=== PATIENT | male | born 1995 | race Hispanic/Latino ===

== ENCOUNTER 2025-06-10 22:39 | Emergency (ER) | payer SELFPAY ==
[~2025-06-10] VITALS: Ht 182.9 cm; Wt 81.6 kg
[2025-06-10 22:43] VITALS: BP 113/75; PULSE 91; RESP 16; TEMP 98.1
--- NOTE | 2025-06-10 22:49 | ERN ---
ED Note History of Present Illness Stated Complaint: MEDICAL CLEARANCE Chief Complaint: Medical Clearance Time Seen by MD: 22:42 Dictation: PATIENT IS A 30-YEAR-OLD MALE COMING IN VIA EMS FROM [facility]. HE WENT TO [place] BECAUSE HE NEEDED TO TALK TO SOMEBODY ABOUT HOW HE WAS FEELING AND HE GOT KICKED OUT OF HIS STEP FATHER'S HOUSE THIS AFTERNOON HAD A NO PLACE TO GO. HE STATES HE FEELS LIKE THAT THERE SOME DEGREE OF ENTRAPMENT HERE HOWEVER HE DOES NOT KNOW WHO IS TRYING TO ENTRAP HIM. HE DOES DENIES ANY THOUGHTS OF SUICIDAL OR HOMICIDAL IDEATION SAID HE JUST NEEDS HELP. SAID HE SPOKE TO HIS COUNSELOR AT [facility] TWO WEEKS AGO WHO ADVISED HIM TO BE ADMITTED TO THE HOSPITAL HOWEVER HE DID NOT AGREE AT THAT TIME. HE DOES STATE HE HAS BEEN DRINKING TODAY EIGHT OR NINE BEERS AND DID 8-9 BUMPS OF COCAINE. Allergies: Coded Allergies: No Known Drug Allergies (Unverified Allergy, Unknown, 06/10/25) Past Medical History Past Medical History: No Pertinent History Surgical History: None Social History: Drugs, ETOH RN Note Reviewed/Agreed w/PFSH: Yes Review of System Dictation CONSTITUTIONAL: NEGATIVE EXCEPT FOR HPI HEAD/FACE: NEGATIVE EXCEPT FOR HPI EENT: NEGATIVE EXCEPT FOR HPI RESPIRATORY: NEGATIVE EXCEPT FOR HPI GASTROINTESTINAL/ABDOMINAL: NEGATIVE EXCEPT FOR HPI GENITOURINARY: NEGATIVE EXCEPT FOR HPI MUSCULOSKELETAL: NEGATIVE EXCEPT FOR HPI INTEGUMENTARY: NEGATIVE EXCEPT FOR HPI NEUROLOGICAL/PSYCH: NEGATIVE EXCEPT FOR HPI POSSIBLE ALCOHOL INTOXICATION DELUSIONAL THOUGHT HEMATOLOGIC/LYMPHATIC: NEGATIVE EXCEPT FOR HPI ALL SYSTEMS NEGATIVE, EXCEPT NOTED ABOVE. 13 POINT REVIEW OF SYSTEMS ASSESSED AND ALL NEGATIVE EXCEPT FOR ABOVE. Initial Vital Sign VS Vital Signs Date Time Temp Pulse Resp B/P (MAP) Pulse Ox O2 Delivery O2 Flow Rate FiO2 06/10/25 22:43 98.1 91 16 113/75 95 Room Air 0 Physical Exam Dictation VITAL SIGNS REVIEWED GENERAL APPEARANCE: ALERT, ORIENTED X 3, NO ACUTE DISTRESS, WELL DEVELOPED, NOURISHED. HEAD AND FACE: NON-TRAUMATIC. EYES: PERRL, PINK CONJUNCTIVAS, EYELID NO TRAUMA, ANTERIOR CHAMBER WITH ARCUS SENILIS. EARS: PINNAS INTACT AND NO SIGNS OF TRAUMA OR ERYTHEMA EAR CANALS CLEAR AND NO DISCHARGE TM NO ERYTHEMA NOSE: NO DISCHARGE, NO BLEEDING. OROPHARYNX: MOUTH NORMAL, TONGUE PINK, PHARYNX CLEAR,NO ERYTHEMA, TONSILS NO EXUDATES, NO ABSCESSES NOTED, MUCOUS MEMBRANE MOIST NECK: SUPPLE, NON-TENDER, NO THYROMEGALY, NO MASSES, NO JVD, NO BRUITS BREAST:DEFERRED CHEST:NO TENDERNESS, NO CREPITUS, NO PARADOXICAL MOVEMENT, NO RETRACTIONS LUNGS:CLEAR, WELL-VENTILATED, SYMMETRIC, NO RALES, NO WHEEZING, NO RHONCHI, NO STRIDOR, GOOD BREATH SOUNDS BILATERALLY HEART: REGULAR RATE, REGULAR RHYTHM, NO MURMUR, NO GALLOPS VASCULAR: NO PERIPHERAL EDEMA, ABDOMEN: SOFT, POSITIVE BOWEL SOUNDS, NONDISTENDED, NO GUARDING, NONTENDER, NO REBOUND, NO MASSES NO HEPATOMEGALY, NO SPLENOMEGALY, NO MELO'S SIGN, NO HERNIAS. RECTAL: DEFERRED GENITAL: DEFERRED NEUROLOGICAL: NORMAL SPEECH, MOTOR FUNCTION INTACT, SENSORY FUNCTION INTACT NO SUICIDAL OR HOMICIDAL IDEATION. DELUSIONAL THOUGHTS OF ENTRAPMENT. MUSCULOSKELETAL: NECK NONTENDER, FULL RANGE OF MOTION, BACK NONTENDER, FULL RANGE OF MOTION, EXTREMITIES: NONTENDER, FULL RANGE OF MOTION SKIN: COLOR PINK, DRY, NO TURGOR, NO RASH, NO LACERATIONS, NO ABRASIONS, NO CONTUSIONS. LYMPHATIC: DEFERRED Results (Laboratory/Radiology) Labs Reviewed?: Yes ED Course ED Course Orders Procedure Category Date Status Time Suicide Precautions CPOE 06/10/25 Transmitted 22:43 Drug Screen Urine LAB 06/10/25 Logged 22:43 Cbc With Differential LAB 06/10/25 Logged 22:43 Alcohol, Blood LAB 06/10/25 Logged 22:43 Salicylate LAB 06/10/25 Logged 22:43 Acetaminophen LAB 06/10/25 Logged 22:43 Urinalysis Profile LAB 06/10/25 Logged 22:43 Creatine Kinase, Total LAB 06/10/25 Logged 22:43 Basic Metabolic Panel LAB 06/10/25 Logged 22:43 Vital Signs Date Time Temp Pulse Resp B/P (MAP) Pulse Ox O2 Delivery O2 Flow Rate FiO2 06/10/25 22:43 98.1 91 16 113/75 95 Room Air 0 2325/REFUSED BLOOD AT THIS TIME. HE STATES I WAS TOLD BY [facility] I COULD COME OVER HERE AND GET SOME SLEEP AND CHARGE MY CELL PHONE. I EXPLAINED TO HIM THAT WE WERE AN EMERGENCY ROOM WE DO NOT HAVE PROVISIONS FOR HIM TO SIMPLY LAY HERE IN [place] PHONE. I TOLD HIM REASONS FOR THE BLOOD IF HE WANTED US TO MEDICALLY CLEARED HER FOR TROPICAL AND HE SAID YOUR NOT GETTING ANY MY BLOOD. AGAIN PATIENT DENIES SUICIDAL OR HOMICIDAL IDEATION. HE COLLECTED HIS BELONGINGS WAS ESCORTED TO THE WAITING ROOM. Medical Decision Making MDM MEDICAL DECISION-MAKING WAS GOING TO BE ON MEDICAL CLEARANCE FOR TROPICAL SCREEN PATIENT REFUSED BLOOD AT THIS TIME. ALERT AND ORIENTED X4 SPEECH IS CLEAR, NO SI OR HI PATIENT WAS ESCORTED TO THE WAITING ROOM AND WE WILL CALL HIS FAMILY TO PICK HIM UP. DX & DISP Disposition: AMA Departure Impression: Primary Impression: Medical clearance for psychiatric admission Condition: Stable Time of Disposition: 23:22 I have reviewed the case, and I agree with, Diagnosis and Plan JUSTINE HAMLIN NP Jun 10, 2025 22:49
--- NOTE | 2025-06-10 23:15 | NUR ---
PT REFUSES TO HAVE BLOOD DRAWN AND GIVE URINE SAMPLE. PER PT, HE IS HERE TO GET SOME SLEEP AND REST. JUSTINE BARRIOS MADE AWARE. LIVE IN CAREGIVER TALKS TO PT ABOUT SITUATION AND NEED FOR BLOOD TESTS FOR MEDICAL CLEARANCE. PT STILL REFUSES TREATMENTS AND REFUSES TO SIGN PAPERWORK.
== END 2025-06-10 23:16 | disposition left against medical advice (07) ==
LOC: EDH 22:39
DX: Z04.6 Encounter for general psychiatric examination, requested by authority (principal)
CPT/HCPCS: 99283